=== PATIENT | female | born 1985 | race Caucasian/White ===

== ENCOUNTER 2020-10-25 12:49 | Emergency (ER) | payer MEDICARE, MEDICAID, SELFPAY | END 2020-10-25 13:49 | disposition left against medical advice (07) | PROVIDERS: Emergency Provider Emergency Medicine; PCP Family Medicine | DX: N93.9 Abnormal uterine and vaginal bleeding, unspecified (principal) ==

== ENCOUNTER 2020-10-25 13:52 | Outpatient (REF) | payer MEDICARE, MEDICAID, SELFPAY ==
[2020-10-27 13:22] LABS: HCV RNA PCR Qn <1.18 NOT DETECTED Log IU/mL (NOT DETECTED); HCV RNA PCR Qn <15 NOT DETECTED IU/mL (NOT DETECTED)
[2020-10-27 15:16] LABS: HIV RNA PCR Qn Copies <20 NOT DETECTED copies/mL (NOT DETECTED); HIV RNA PCR Qn Log Copies <1.30 NOT DETECTED (NOT DETECTED)
== END 2020-10-25 13:53 | disposition home or self-care (01) ==
LOC: HO.LAB 13:52
PROVIDERS: PCP Family Medicine; Visit Provider Family Medicine
DX: Z20.6 Contact with and (suspected) exposure to human immunodeficiency virus [HIV] (principal)
CPT/HCPCS: 36415; 87536; 87902

== ENCOUNTER 2020-12-06 15:28 | Outpatient (REF) | payer MEDICARE, MEDICAID, SELFPAY ==
--- NOTE | ~2020-12-06 | US_ITS ---
EXAMINATION: US PELVIS CLINICAL INFORMATION: Irregular/missed periods. COMPARISON: None. TECHNIQUE: Ultrasound of the pelvis is performed using both transabdominal and transvaginal transducers along with Doppler. Transvaginal imaging is performed due to inadequate visualization transabdominally. FINDINGS: The uterus is anteverted and measures 7.9 x 3.6 x 4.3 cm in dimension. No focal uterine lesion is seen. Endometrial thickness is normal measuring 0.8 cm. There is a nabothian cyst in the cervix. The right ovary is normal appearing. The right ovary measures 2.4 x 2.3 x 1.9 cm. The left ovary is upper normal in size measuring 4.1 x 2.8 x 3.3 cm, volume 19 mL. There is a 1.7 x 1.5 x 2.1 cm complex left ovarian cyst with slightly thickened wall, internal echoes and septations. There is a small amount of fluid in the pelvis. US/US pelvic and transvaginal IMPRESSION: Normal-appearing uterus and right ovary. Upper normal-size left ovary and 1.7 x 1.5 x 2.1 cm complex left ovarian cyst.
== END 2020-12-06 15:29 | disposition home or self-care (01) ==
LOC: HO.US 15:28
PROVIDERS: PCP Family Medicine; Visit Provider Family Medicine
DX: N92.6 Irregular menstruation, unspecified (principal)
CPT/HCPCS: 76830; 76856

== ENCOUNTER 2020-12-16 09:01 | Outpatient (REF) | payer MEDICARE, MEDICAID, SELFPAY ==
[2020-12-16 11:58] LABS: HCG Quantitative < 2 mIU/mL
[2020-12-18 01:37] LABS: CA-125 7 U/mL (<35)
== END 2020-12-16 09:02 | disposition home or self-care (01) ==
LOC: HO.LAB 09:01
PROVIDERS: PCP Family Medicine; Visit Provider Advanced Practice Midwife
DX: N83.299 Other ovarian cyst, unspecified side (principal); N92.6 Irregular menstruation, unspecified; Z59.01 Sheltered homelessness
CPT/HCPCS: 36415; 84702; 86304; 99202

== ENCOUNTER 2021-02-14 08:13 | Emergency (ER) | payer MEDICARE, MEDICAID, SELFPAY ==
[2021-02-14 08:29] VITALS: BP 140/95; PULSE 100; RESP 19; TEMP 36.6; O2SAT 99; BMI 39.1
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
--- NOTE | 2021-02-14 11:12 | PHA.MEDREC ---
Pharmacy Consult ? Medication Reconciliation Pharmacy has completed the medication reconciliation. Spoke with patient in ED. Patient reports taking diazepam 2 mg bid ( decreased from 5 mg tid), tapering off topiramate and currently taking once daily, stopped zoloft and strattera.
[2021-02-14 11:50] LABS: MANUAL DIFF FLAG NO
[2021-02-14 11:51] LABS: Basophils Percent Auto 0.4 % (0-2); Eosinophils Absolute Auto 0.2 X10*3/uL (0.0-0.4); Eosinophils Percent Auto 2.2 % (0-4); Hematocrit 41.8 % (37.0-47.0); Hemoglobin 13.9 g/dl (12.0-16.0); Imm Gran Abs Auto 0.01 X10*3/uL (0.00-0.03); Imm Gran Pct Auto 0.1 % (0.0-0.4); Lymphocytes Absolute Auto 1.2 X10*3/uL (1.2-4.9); Lymphocytes Percent Auto 16.5 % (20-40); Mean Corpuscular HGB Conc 33.3 g/dl (31.0-35.0); Mean Corpuscular Hemoglobin 29.5 pg (27.0-33.0); Mean Corpuscular Volume 88.7 fL (80.0-98.0); Mean Platelet Volume 10.9 fL (9.4-12.3); Monocytes Absolute Auto 0.5 X10*3/uL (0.1-1.2); Monocytes Percent Auto 6.3 % (2-11); Neutrophils Absolute Auto 5.3 x10*3/uL (2.0-8.3); Neutrophils Percent Auto 74.5 % (45-73); Platelet Count 207 X10*3/uL (160-400); Red Blood Count 4.71 X10*6/uL (4.20-5.50); Red Cell Distribution Width 12.2 % (11.0-16.0); White Blood Count 7.2 X10*3/uL (4.8-10.8)
[2021-02-14 11:52] LABS: Appearance Urine HAZY; Color Urine YELLOW; Glucose Urine UA NEG (NEG); Leukocyte Esterase Urine NEG (NEG); Nitrite Urine NEG (NEG); PH 5.5 (5.0-8.0); Specific Gravity - Urine >= 1.030 (1.005-1.025); Urine Blood NEG (NEG); Urine Ketones NEG (NEG); Urine Protein NEG (NEG-TRACE)
[2021-02-14 11:54] LABS: UPreg QC Valid YES; Urine Pregnancy NEGATIVE (NEGATIVE)
[2021-02-14 12:07] LABS: Ethanol < 10 mg/dL
[2021-02-14 12:10] LABS: Amphetamine Screen Urine POSITIVE (Not Detect); Barbiturates, Urine Not Detected (Not Detect); Benzodiazepines Screen Urine POSITIVE (Not Detect); Cannabinoid Screen Urine Not Detected (Not Detect); Cocaine Screen Urine Not Detected (Not Detect); Fentanyl, urine Not Detected (Not Detect); Opiate Screen Urine Not Detected (Not Detect); Phencyclidine Screen Urine Not Detected (Not Detect)
[2021-02-14 12:13] LABS: COVID-19 Test Negative (Negative)
[2021-02-14 12:23] LABS: Alanine Aminotransferase 15 U/L (0-31); Albumin Level 4.3 g/dL (3.5-5.0); Alkaline Phosphatase 71 U/L (39-117); Anion Gap 10 (12-20); Aspartate Amino Transferase 9 U/L (5-31); Bilirubin Total 0.7 mg/dL (0.0-1.0); Blood Urea Nitrogen 13 mg/dL (9-16); Calcium 9.2 mg/dL (8.4-10.2); Carbon Dioxide 19 mmol/L (22-29); Chloride 113 mmol/L (96-108); Creatinine Clr Calc Pharmacy 124.1; Estimated Glomerular Filt Rate > 60; Glucose Random 99 mg/dL (60-115); Lipase 24 U/L (8-78); Potassium 4.1 mmol/L (3.3-5.1); Sodium 138 mmol/L (135-145); Total Protein 6.8 g/dL (6.5-8.0)
--- NOTE | 2021-02-14 13:28 | PC.NURSE ---
Addendum entered by Noemi Estrada 02/14/21 13:37: SPOKE TO FLORENCIA, SHE STATED PT'S BEHAVIOR INAPPROPRIATE. CARE TEAM WILL TOUCH BASE WITH PT PRIOR TO SENDING HER BACK Original Note: CALL TO KEN SILVERIO.
== END 2021-02-14 15:05 | disposition home or self-care (01) ==
PROVIDERS: Physician Assistant Medical; Emergency Provider Emergency Medicine; PCP Family Medicine
DX: F41.9 Anxiety disorder, unspecified (principal); Z20.822 Contact with and (suspected) exposure to COVID-19; F31.9 Bipolar disorder, unspecified; F43.10 Post-traumatic stress disorder, unspecified; Z79.899 Other long term (current) drug therapy
CPT/HCPCS: 36415; 80053; 80307; 81003; 81025; 82077; 83690; 83735; 85025; 87635; 99283; 99284

== ENCOUNTER 2021-03-02 11:02 | Outpatient (REF) | payer MEDICARE, MEDICAID, SELFPAY ==
--- NOTE | ~2021-03-02 | US_ITS ---
EXAMINATION: US PELVIC AND TRANSVAGINAL CLINICAL INFORMATION: Left-sided ovarian cyst. COMPARISON: Ultrasound pelvis 12/06/2020. TECHNIQUE: Ultrasound of the pelvis was performed using both transabdominal and transvaginal transducers along with Doppler. Transvaginal imaging was performed due to inadequate visualization transabdominally. FINDINGS: Uterus: The uterus is anteverted, anteflexed and measures 7.0 x 3.8 x 4.7 cm. The double wall endometrial thickness is 0.6 cm. The uterus is smooth in contour and has normal myometrial echogenicity. No visible fibroid. There is an anechoic cyst within the cervical canal. Small nabothian cysts are seen in the cervix. Adnexa: Both ovaries are visualized. There is normal color-flow to the adnexa. There is no ovarian torsion. There is no pelvic ascites or fluid collection. Right ovary measures 3.3 x 2.5 x 2.6 cm and volume 11.2 mL. There are multiple small anechoic cysts seen. Previously, the right ovary measured 2.4 x 2.3 x 1.9 cm and volume 5.6 mL. Left ovary measures 3.2 x 2.8 x 2.5 cm and volume 11.7 mL. There are multiple anechoic cysts seen. Previously, the left ovary measured 4.1 x 2.8 x 3.3 cm and volume 9.3 mL. US/US pelvic and transvaginal IMPRESSION: Bilateral small ovarian cyst, question polycystic ovarian syndrome. Unremarkable uterus. Small nabothian cysts in the cervix. Minimal fluid within the cervical canal. The previously visualized left ovarian complex 1.7 cm cyst is not seen at this time.
== END 2021-03-02 11:03 | disposition home or self-care (01) ==
LOC: HO.US 11:02
PROVIDERS: PCP Family Medicine; Visit Provider Advanced Practice Midwife
DX: N83.292 Other ovarian cyst, left side (principal)
CPT/HCPCS: 76830; 76856

== ENCOUNTER → 2021-03-11 10:58 | Outpatient (BNVA) | payer MEDICARE, MEDICAID, SELFPAY | PROVIDERS: PCP Family Medicine; Visit Provider Advanced Practice Midwife | DX: N92.6 Irregular menstruation, unspecified (principal); N83.292 Other ovarian cyst, left side | CPT/HCPCS: Q3014 ==